=== PATIENT | female | born 1965 ===

== ENCOUNTER 2018-04-22 20:12 | Emergency (ER) | payer MEDICAID ==
[2018-04-22 22:44] LABS: SQUAMOUS EPITHIAL 10 /hpf (0-5); URINE BACTERIA RARE (<OCC); URINE BILIRUBIN NEGATIVE (NEGATIVE); URINE BLOOD 2+ (NEGATIVE); URINE CLARITY Hazy (Clear); URINE COLOR Yellow (YELLOW); URINE GLUCOSE (UA) NORMAL (Normal); URINE HYALINE CAST 0-2 /lpf (0-2); URINE LEUKOCYTE ESTERASE 2+ Leu/uL (Negative); URINE PROTEIN NEGATIVE (NEGATIVE); URINE UROBILINOGEN NORMAL mg/dL (0.2-1.0)
--- NOTE | 2018-04-22 22:51 | C.PDOC ---
History Of Present Illness 52 y/o female presents to the ED complaining of left lower back pain, ongoing for the past 2 months. Pain is described as intermittent, and worsens with movement. She denies any recent trauma or fall. No associated urinary/ bowel incontinence, weakness, abdominal pain, dysuria, fevers, or changes in sensation. Patient does report urinary frequency. Time Seen by Provider: 04/22/18 21:47 Chief Complaint (Nursing): Back Pain History Per: Patient History/Exam Limitations: no limitations Onset/Duration Of Symptoms: Intermittent Episodes Current Symptoms Are (Timing): Still Present Past Medical History Reviewed: Historical Data, Nursing Documentation, Vital Signs Vital Signs: Last Vital Signs Temp 98.1 F 04/22/18 23:09 Pulse 85 04/22/18 23:09 Resp 16 04/22/18 23:09 BP 113/75 04/22/18 23:09 Pulse Ox 99 04/23/18 00:07 - Medical History PMH: Back Problems, HTN Surgical History: Cholecystectomy Family History: States: Unknown Family Hx - Social History Hx Tobacco Use: No Hx Alcohol Use: No Hx Substance Use: No - Immunization History Hx Tetanus Toxoid Vaccination: No Hx Influenza Vaccination: Yes Hx Pneumococcal Vaccination: No Review Of Systems Except As Marked, All Systems Reviewed And Found Negative. Constitutional: Negative for: Fever Genitourinary: Positive for: Frequency. Negative for: Dysuria, Incontinence Musculoskeletal: Positive for: Back Pain Neurological: Negative for: Weakness, Numbness Physical Exam - Physical Exam Appears: Well, Non-toxic, No Acute Distress Skin: Normal Color, Warm Head: Atraumatic, Normacephalic Eye(s): bilateral: Normal Inspection, EOMI Nose: Normal Oral Mucosa: Moist Neck: Normal ROM, Supple Chest: Symmetrical Respiratory: No Accessory Muscle Use, Other (speaking in full sentences) Back: No Vertebral Tenderness, Paraspinal Tenderness (to left paralumbar region) , No Straight Leg Raising Extremity: Normal ROM Extremity: Bilateral: Atraumatic, Normal Color And Temperature, Normal ROM Neurological/Psych: Oriented x3, Normal Speech, Normal Motor, Normal Sensation, Other (No focal deficits) Gait: Steady ED Course And Treatment O2 Sat by Pulse Oximetry: 99 (RA) Pulse Ox Interpretation: Normal - Other Rad x-ray ls spine X-Ray: Interpreted by Me, Viewed By Me Interpretation: No fracture, no dislocation Progress Note: UA and cultures sent. Patient treated with PO Flexeril in the ED. X-ray of the lumbar spine obtained, and is negative. Labs reviewed, urine is indicative of UTI. On reassessment, patient is resting comfortably, with improvement of back pain. Patient remains afebrile, with no bony tenderness, extremity numbness or weakness, or abdominal pain. Patient is ambulatory in the emergency department with no signs of discomfort. Patient will be discharged home with prescription for Macrobid and Naprosyn. Advised patient to follow up with physician/clinic in 1-2 days. Reevaluation Time: 22:42 Reassessment Condition: Improved Disposition Counseled Patient/Family Regarding: Studies Performed, Diagnosis, Need For Followup - Disposition Referrals: Jose Berg MD [Primary Care Provider] - Disposition: HOME/ ROUTINE Disposition Time: 22:49 Condition: STABLE Additional Instructions: Vaya a roblero mdico o la clnica en 2-3 cornejo sin falta, para mas evaluacin. [facility] los medicamentos tima indicado. Volver a la maurilio de emergencia en cualquier momento si los sntomas persisten o empeoran Prescriptions: Naproxen [Naprosyn] 1 tab PO BID PRN #20 tab PRN Reason: Pain Nitrofurantoin Macrocrystals [Macrobid] 1 cap PO BID #14 cap Instructions: Urinary Tract Infection, Adult (DC) Forms: [facility] (Albanian), Work Excuse Print Language: FRENCH - Clinical Impression Clinical Impression: Low back pain, UTI (urinary tract infection) - PA / ANNUAL GIVING MANAGER / Resident Statement MD/DO has reviewed & agrees with the documentation as recorded. - Scribe Statement The provider has reviewed the documentation as recorded by the Scribe (Angeli Patel) All medical record entries made by the Scribe were at my direction and personally dictated by me. I have reviewed the chart and agree that the record accurately reflects my personal performance of the history, physical exam, medical decision making, and the department course for this patient. I have also personally directed, reviewed, and agree with the discharge instructions and disposition.
[2018-04-22 23:10] VITALS: BP 113/75; PULSE 85; RESP 16; TEMP 98.1
[2018-04-23 00:03] VITALS: O2SAT 99
--- NOTE | 2018-04-23 10:12 | RAD ---
PROCEDURE: Radiographs of the Lumbar Spine. HISTORY: pain COMPARISON: No prior. FINDINGS: BONES: Normal alignment. No listhesis. No fracture. DISC SPACES: Unremarkable. OTHER FINDINGS: None. IMPRESSION: Unremarkable radiographs of the lumbar spine.
== END 2018-04-22 23:13 | disposition home or self-care (01) ==
LOC: SUPCPDRO 20:12 → C.ER 20:12
DX: N39.0 Urinary tract infection, site not specified (principal); M54.5 Low back pain; I10 Essential (primary) hypertension